=== PATIENT | male | born 1975 | race Caucasian/White ===

== ENCOUNTER → 2016-06-01 | Outpatient (CLI) | payer BC ==
[2016-06-01 08:12] LABS: BASOPHILS % (AUTO) 0.5 % (0-2); EOSINOPHILS # (AUTO) 0.5 T/MM3 (0-0.5); HCT - HEMATOCRIT 41.8 % (41-53); HGB - HEMOGLOBIN 14.7 GM/DL (13.5-17.5); IMMATURE GRANULOCYTE # (AUTO) 0.01 T/MM3 (0.00-0.03); IMMATURE GRANULOCYTE % (AUTO) 0.2 % (0.0-0.5); LYMPHOCYTES # (AUTO) 1.2 T/MM3 (1-4.8); LYMPHOCYTES % (AUTO) 28.1 % (23-45); MEAN CORPUSCULAR HGB 30.1 UUG (26-34); MEAN CORPUSCULAR HGB CONC(MCHC 35.2 GM/DL (31-37); MEAN CORPUSCULAR VOLUME 85.7 UM3 (80-100); MEAN PLATELET VOLUME 9.3 UM3 (9.4-12.4); MONOCYTES # (AUTO) 0.3 T/MM3 (0-0.8); MONOCYTES % (AUTO) 6.7 % (0-9.0); NEUTROPHILS #(AUTO)-ABSOLUTE 2.2 T/MM3 (1.8-7.7); NEUTROPHILS % (AUTO) 53.5 % (33-66); RED BLOOD COUNT 4.88 M/MM3 (4.50-5.90); WBC - WHITE BLOOD COUNT 4.2 T/MM3 (4.5-11.0)
[2016-06-01 08:23] LABS: ALBUMIN 4.5 G/DL (3.5-5.0); ALBUMIN/GLOBULIN RATIO 1.6 RATIO (1.1-2.2); ALKALINE PHOSPHATASE 62 U/L (38-126); ALT (SGPT) 53 U/L (21-72); ANION GAP 12 MEQ/L (5-15); AST (SGOT) 40 U/L (17-59); BUN/CREATININE RATIO 16 RATIO (6-26); CALCIUM 9.3 MG/DL (8.4-10.2); CHLORIDE 104 MEQ/L (98-107); CO2 - CARBON DIOXIDE 30 MEQ/L (22-30); CREATININE 0.7 MG/DL (0.8-1.5); GLOMERULAR FILTRATION RATE 123; GLUCOSE 99 MG/DL (75-110); POTASSIUM 4.5 MEQ/L (3.6-5); SODIUM 146 MEQ/L (134-144); TOTAL PROTEIN 7.3 G/DL (6.3-8.2)
[2016-06-01 08:30] LABS: BLOOD, URINE NEGATIVE (NEGATIVE); COLOR,URINE YELLOW (YELLOW); LEUKOCYTE ESTERASE ,URINE NEGATIVE (NEGATIVE); NITRITE,URINE NEGATIVE (NEGATIVE); UROBILINOGEN,URINE 0.2 EU/DL (NORMAL)
== END ==
LOC: LAB 07:48
PROVIDERS: ATTEND Physician Assistant
DX: I10 Essential (primary) hypertension (principal); Z00.00 Encounter for general adult medical examination without abnormal findings; R00.0 Tachycardia, unspecified
CPT/HCPCS: 36415; 80053; 80061; 81003; 84153; 84443; 85025